=== PATIENT | female | born 1995 | race Caucasian/White ===

== ENCOUNTER 2019-07-31 06:33 | Emergency (ER) | payer SELFPAY ==
[~2019-07-31] VITALS: Ht 162.6 cm; Wt 57.6 kg
[2019-07-31 06:33] VITALS: BP 114/73
[~2019-07-31 06:33] MED LIST: IBUP-974 PO
--- NOTE | 2019-07-31 06:33 | NUR ---
PT BIB [facility], PRE[facility]. TAKEN TO CHAIR C
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
[2019-07-31 06:51] VITALS: BP 114/73
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
== END 2019-07-31 06:51 ==
LOC: MED 06:33
DX: S50.811A Abrasion of right forearm, initial encounter (principal); Z79.1 Long term (current) use of non-steroidal anti-inflammatories (NSAID); V49.49XA Driver injured in collision with other motor vehicles in traffic accident, initial encounter; W22.10XA Striking against or struck by unspecified automobile airbag, initial encounter; Y93.89 Activity, other specified; Y92.488 Other paved roadways as the place of occurrence of the external cause; Y99.8 Other external cause status
CPT/HCPCS: 99283